=== PATIENT | male | born 1990 | race Caucasian/White ===

== ENCOUNTER 2018-12-12 16:27 | Emergency (ER) | payer OTHER ==
[~2018-12-12] VITALS: Ht 182.9 cm; Wt 86.4 kg
[2018-12-12 16:41] VITALS: Ht 182.9 cm; Wt 86.4 kg
[2018-12-12] MEDS ORDERED: KETOROLAC 60 MG INJ IM STA (17:14)
[2018-12-12] MEDS ORDERED: ONDANSETRON (ODT) 4 MG TAB ODT STA (17:14)
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
[2018-12-12 18:31] VITALS: BP 133/71; PULSE 72; RESP 20
== END 2018-12-12 18:33 | disposition home or self-care (01) ==
LOC: E/R 16:27
DX: S06.0X1A Concussion with loss of consciousness of 30 minutes or less, initial encounter (principal); R40.2142 Coma scale, eyes open, spontaneous, at arrival to emergency department; R40.2362 Coma scale, best motor response, obeys commands, at arrival to emergency department; R40.2252 Coma scale, best verbal response, oriented, at arrival to emergency department; S13.4XXA Sprain of ligaments of cervical spine, initial encounter; S39.92XA Unspecified injury of lower back, initial encounter; V49.50XA Passenger injured in collision with unspecified motor vehicles in traffic accident, initial encounter
CPT/HCPCS: 70450; 96372; 99285; J1885